=== PATIENT | male | born 1985 | race Caucasian/White ===

== ENCOUNTER 2016-03-15 13:56 | Emergency (ER) | payer BC ==
[2016-03-15 14:23] VITALS: BP 134/77
--- NOTE | 2016-03-15 14:50 | UC ---
Respiratory Complaint HPI - HPI Summary HPI Summary: patient with a CC of left sided chest tightness and pain after coughing fits x 3 days. he states he felt slightly congested the day before the cough started, but now denies congestion, rhinorrhea, CHANEY, cough with sputum production. chest pain does not radiate to the arm and is only present while coughing. he think he may have pulled a muscle. he has never had anything like this before. denies sick contacts. - History of Current Complaint Chief Complaint: UCRespiratory Stated Complaint: COUGH Time Seen by Provider: 03/15/16 14:26 Hx Obtained From: Patient Onset/Duration: Gradual Onset Timing: Constant Severity Initially: Moderate Severity Currently: Moderate Pain Intensity: 3 Pain Scale Used: 0-10 Numeric Character: Cough: Nonproductive Aggravating Factors: Allergens, Nothing - smoking Associated Signs And Symptoms: Positive: Negative - Risk Factors Pulmonary Embolism Risk Factors: Smoking Cardiac Risk Factors: Smoking Tuberculosis Risk Factors: Smoking - Allergies/Home Medications Allergies/Adverse Reactions: Allergies Allergy/AdvReac Type Severity Reaction Status Date / Time No Known Allergies Allergy Verified 03/15/16 14:22 PMH/Surg Hx/FS Hx/Imm Hx Endocrine History Of: Denies: Diabetes, Thyroid Disease Cardiovascular History Of: Denies: Cardiac Disorders, Hypertension Respiratory History Of: Denies: COPD, Asthma GI/ History Of: Denies: Ulcer - Surgical History Surgical History: None - Family History Known Family History: Positive: None, Cardiac Disease, Diabetes Negative: Respiratory Disease - Social History Occupation: Employed Full-time Lives: With Family Alcohol Use: Daily Alcohol Amount: 1 beer per day Substance Use Type: Marijuana Substance Use Comment - Amount & Last Used: occassionally Smoking Status (MU): Heavy Every Day Tobacco Smoker Type: Cigarettes Amount Used/How Often: <1ppd Length of Time of Smoking/Using Tobacco: 11 years Review of Systems Constitutional: Negative Skin: Negative Eyes: Negative Respiratory: Shortness Of Breath, Cough Cardiovascular: Negative, Chest Pain - feeling of tightness after coughing Motor: Negative Neurovascular: Negative Neurological: Negative All Other Systems Reviewed And Are Negative: Yes Physical Exam Triage Information Reviewed: Yes Appearance: Well-Appearing, No Pain Distress, Well-Nourished Vital Signs: Initial Vital Signs Temp 98.9 F 03/15/16 14:15 Pulse 81 03/15/16 14:15 Resp 20 03/15/16 14:15 BP 134/77 03/15/16 14:15 Pulse Ox 97 03/15/16 14:15 Vital Signs Reviewed: Yes Eye Exam: Normal Eyes: Positive: Conjunctiva Clear ENT Exam: Normal ENT: Positive: TMs normal Neck exam: Normal Neck: Positive: Supple, Nontender Respiratory Exam: Normal Respiratory: Positive: Chest non-tender, Lungs clear, Normal breath sounds, No respiratory distress, No accessory muscle use Cardiovascular Exam: Normal Musculoskeletal Exam: Normal Musculoskeletal: Positive: Strength Intact Neurological Exam: Normal Neurological: Positive: Alert Skin Exam: Normal Diagnostic Evaluation - Laboratory O2 Sat by Pulse Oximetry: 97 Respiratory Course/Dx - Course Course Of Treatment: patient educated about antibiotics. tenderness over the pectoral muscle on the L side. dry cough noted on exam. lungs clear. low suspician for cardiac in nature. smoker. will treat with muscle relaxer and cough medication with return precautions. - Differential Dx/Diagnosis Differential Diagnosis/HQI/PQRI: Asthma, Bronchitis, Lower Resp Infection Provider Diagnoses: cough with muscle strain - Physician Notification/Consults Instructed by Provider To: Have Pt Call For Appt. Discharge - Discharge Plan Condition: Stable Disposition: HOME Prescriptions: Cyclobenzaprine TAB* [Flexeril TAB*] 10 mg PO BID PRN #10 tab MDD 2 PRN Reason: Pain guaiFENesin/CODIEN 100MG-10MG* [Robitussin AC 100Mg-10Mg*] 5 ml PO Q4H PRN #150 ml MDD 6 teaspoons PRN Reason: Cough Patient Education Materials: Codeine (By mouth), Cyclobenzaprine (By mouth) Referrals: No Primary Care Phys,NOPCP [Primary Care Provider] - Additional Instructions: Drink plenty of fluids. take medications as prescribed to you do not drive with these medications if symptoms fail to improve or worsen, come back to the
== END 2016-03-15 14:46 | disposition home or self-care (01) ==
LOC: UCEAST 13:56
DX: R05 Cough (principal); T14.8 Other injury of unspecified body region; F17.210 Nicotine dependence, cigarettes, uncomplicated; X58.XXXA Exposure to other specified factors, initial encounter; Y92.9 Unspecified place or not applicable
CPT/HCPCS: 99212; G0463

== ENCOUNTER 2016-04-14 15:35 | Emergency (ER) | payer BC ==
[2016-04-14 17:44] VITALS: BP 158/106
--- NOTE | 2016-04-14 19:35 | UC ---
Respiratory Complaint HPI - HPI Summary HPI Summary: 30 male presents today complaining of muscular chest pain that began for the past month when he also was suffering from a URI. Patient states he was seen in [facility] [address] approximately one month ago (03/13/16) and diagnosed with muscle strain due to a cough and an URI. He was given a muscle relaxer and cough suppressant and told to return if he has not had any relief. He states he had minimal relief and still complains of an ache under his clavicle that is worse when coughing and upon movement of his upper left extremity. Patient states the pain is worse upon waking up in the morning along with his cough. Describes it to be "like a ball stuck right under his clavicle" throbbing, achey and constant. States his URI has improved but is feeling like he is coming down with a cold. He has been under a lot of stress lately with a recent friend . He has been unable to sleep comfortably at night not knowing what this pain is from. Patient is a smoker and worries it may have something to do with his lungs. Admits to chronic dry cough. Denies difficulty breathing, radiating chest pain to his back or arm, abdominal pain and numbness/tingling. 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 Has tried Ibuprofen with some relief. No cardiac history. no pertinent family history. Does not appear to be cardiac. - History of Current Complaint Chief Complaint: UCRespiratory Stated Complaint: URI Time Seen by Provider: 04/14/16 19:03 Hx Obtained From: Patient Onset/Duration: Lasting Weeks, Still Present Severity Initially: Mild Severity Currently: Mild Pain Intensity: 2 Pain Scale Used: 0-10 Numeric Character: Cough: Nonproductive - chronic Aggravating Factors: Deep Breaths - worse with any movement, coughing Alleviating Factors: OTC Meds Associated Signs And Symptoms: Positive: Negative - Allergies/Home Medications Allergies/Adverse Reactions: Allergies Allergy/AdvReac Type Severity Reaction Status Date / Time No Known Allergies Allergy Verified 04/14/16 17:43 PMH/Surg Hx/FS Hx/Imm Hx Previously Healthy: Yes Endocrine History Of: Denies: Diabetes, Thyroid Disease Cardiovascular History Of: Denies: Cardiac Disorders, Hypertension Respiratory History Of: Denies: COPD, Asthma GI/ History Of: Denies: Ulcer - Surgical History Surgical History: None - Family History Known Family History: Positive: None, Cardiac Disease - grandfather, Diabetes Negative: Respiratory Disease - Social History Alcohol Use: Occasionally Alcohol Amount: 1 beer per day Substance Use Type: Marijuana Substance Use Comment - Amount & Last Used: occassionally Smoking Status (MU): Current Every Day Smoker Type: Cigarettes Amount Used/How Often: 3/4 PPD Length of Time of Smoking/Using Tobacco: 11 years Review of Systems Constitutional: Negative Skin: Negative Eyes: Negative ENT: Negative Respiratory: Cough - dry Cardiovascular: Negative, Chest Pain - pain in between ribs, under clavicle, left side Gastrointestinal: Negative Genitourinary: Negative Motor: Negative Neurovascular: Negative Musculoskeletal: Myalgia - right upper rib cage Neurological: Negative Psychological: Anxious - stressed All Other Systems Reviewed And Are Negative: Yes Physical Exam Triage Information Reviewed: Yes Appearance: Well-Appearing, No Pain Distress, Well-Nourished Vital Signs: Initial Vital Signs Temp 98.6 F 04/14/16 17:39 Pulse 90 04/14/16 17:39 Resp 16 04/14/16 17:39 BP 158/106 04/14/16 17:39 Pulse Ox 100 04/14/16 17:39 BP elevated, patient is anxious. Vital Signs Reviewed: Yes Eyes: Positive: Conjunctiva Clear ENT: Positive: Normal ENT inspection, Hearing grossly normal Neck: Positive: Supple, Nontender Respiratory: Positive: Chest non-tender, Lungs clear, Normal breath sounds, No respiratory distress Cardiovascular: Positive: RRR, No Murmur, Pulses Normal, Brisk Capillary Refill Abdomen Description: Positive: Nontender, No Organomegaly, Soft Bowel Sounds: Positive: Present Musculoskeletal: Positive: Strength Intact, ROM Intact, No Edema - no deformity , crepitus, step-off or eccymosis noted. skin intact. discrete tenderness on palpation of left upper chest, in between ribs, just under left clavicle. reproducible. Neurological Exam: Normal Psychological Exam: Normal Skin Exam: Normal UC Diagnostic Evaluation - Laboratory O2 Sat by Pulse Oximetry: 100 - Radiology Xray Interpretation: No Acute Changes - NO EVIDENCE FOR ACTIVE CARDIOPULMONARY DISEASE Radiology Interpretation Completed By: Radiologist Respiratory Course/Dx - Course Course Of Treatment: X-ray of chest was obtained to rule out cardiopulmonary disease since symptoms have been going on for a month and to ease patient's mind of serious pathologies. Ibuprofen was given to help with costochondritis and cough suppresent to help decrease tension. - Differential Dx/Diagnosis Differential Diagnosis/HQI/PQRI: Bronchitis, Sinusitis, Other Provider Diagnoses: costochondritis/Tietze syndrome Discharge - Discharge Plan Condition: Stable Disposition: HOME Prescriptions: Ibuprofen TAB* [Motrin TAB* 600 MG] 600 mg PO Q8H PRN #20 tab PRN Reason: Pain guaiFENesin/CODIEN 100MG-10MG* [Robitussin AC 100Mg-10Mg*] 5 ml PO Q4H PRN #150 ml MDD 6 teaspoons PRN Reason: Cough Patient Education Materials: Costochondritis (ED) Referrals: No Primary Care Phys,NOPCP [Primary Care Provider] - [facility] [Outside] Additional Instructions: Take prescribed Ibuprofen for the next 5-7 days or until symptoms resolve. Take cough suppressant as while to help you sleep and in order to rest the area of pain. Rest your muscles in your arm and chest. Ice/heat alternations may help. Avoid physical activity and heavy lifting until symptoms resolve. If symptoms worsen or do not improve please return to . Follow-up with your primary care physician is recommended.
--- NOTE | 2016-04-14 19:43 | RAD ---
INDICATION: Cough and chest pain. COMPARISON: There are no prior studies available for comparison. TECHNIQUE: Dual-energy PA and lateral views of the chest were obtained. FINDINGS: The heart is within normal limits in size. Mediastinal and hilar contours appear within normal limits. The lungs are clear. No pleural effusion is present. IMPRESSION: NO EVIDENCE FOR ACTIVE CARDIOPULMONARY DISEASE.
== END 2016-04-14 20:48 | disposition home or self-care (01) ==
LOC: UCEAST 15:35
DX: M94.0 Chondrocostal junction syndrome [Tietze] (principal); F12.90 Cannabis use, unspecified, uncomplicated; F17.210 Nicotine dependence, cigarettes, uncomplicated
CPT/HCPCS: 71020; 99212; G0463

== ENCOUNTER 2018-05-24 13:00 | Emergency (ER) | payer SELFPAY ==
[2018-05-24 13:18] VITALS: BP 132/66
--- NOTE | 2018-05-24 13:31 | UC ---
UC Dental HPI - HPI Summary HPI Summary: 32-year-old male comes in with a chief complaint of dental pain. His been going on for several days. It's getting worse since in the right lower posterior jaw. He feels some swelling. Pain is worse with chewing. No difficulty swallowing no shortness of breath. No ear pain. No fevers or chills. He's tried ibuprofen which does help decrease the pain. He tried to get an appointment with her dentist today but could not get in. - History of Current Complaint Chief Complaint: UCDentalProblem Stated Complaint: DENTAL Time Seen by Provider: 05/24/18 13:24 Pain Intensity: 2 - Allergies/Home Medications Allergies/Adverse Reactions: Allergies Allergy/AdvReac Type Severity Reaction Status Date / Time No Known Allergies Allergy Verified 05/24/18 13:18 Home Medications: Home Medications Ibuprofen TAB* [Motrin TAB* 600 MG] 800 mg PO Q8H PRN 05/24/18 [History Confirmed 05/24/18] PMH/Surg Hx/FS Hx/Imm Hx Previously Healthy: Yes - Surgical History Surgical History: None - Family History Known Family History: Positive: None, Cardiac Disease - grandfather, Diabetes Negative: Respiratory Disease - Social History Alcohol Use: Weekly Alcohol Amount: 1 beer per day Substance Use Type: Marijuana Substance Use Comment - Amount & Last Used: occassionally Smoking Status (MU): Current Every Day Smoker Type: Cigarettes Amount Used/How Often: 1 PPD Length of Time of Smoking/Using Tobacco: 11 years Household Exposure Type: Cigarettes Review of Systems All Other Systems Reviewed And Are Negative: Yes Constitutional: Positive: Negative Skin: Positive: Negative Eyes: Positive: Negative ENT: Positive: Dental Pain Respiratory: Positive: Negative Cardiovascular: Positive: Negative Gastrointestinal: Positive: Negative Motor: Positive: Negative Neurovascular: Positive: Negative Musculoskeletal: Positive: Negative Neurological: Positive: Negative Psychological: Positive: Negative Is Patient Immunocompromised?: No Physical Exam Triage Information Reviewed: Yes Appearance: Well-Appearing, No Pain Distress, Well-Nourished Vital Signs: Initial Vital Signs Temp 98.2 F 05/24/18 13:13 Pulse 55 05/24/18 13:13 Resp 18 05/24/18 13:13 BP 132/66 05/24/18 13:13 Pulse Ox 98 05/24/18 13:13 Vital Signs Reviewed: Yes Eye Exam: Normal Eyes: Positive: Conjunctiva Clear ENT: Positive: Pharynx normal, TMs normal Dental: Positive: Gross Decay/Caries @ - RT LOWER POSTERIOR Neck exam: Normal Neck: Positive: Supple Respiratory: Positive: Lungs clear, Normal breath sounds, No respiratory distress Cardiovascular: Positive: RRR Musculoskeletal Exam: Normal Musculoskeletal: Positive: Strength Intact, ROM Intact Neurological Exam: Normal Neurological: Positive: Alert, Muscle Tone Normal Psychological Exam: Normal Psychological: Positive: Age Appropriate Behavior Skin Exam: Normal Dental Complaint Course/Dx - Differential Dx/Diagnosis Provider Diagnosis: Dental infection, Pain, dental Discharge - Sign-Out/Discharge Documenting (check all that apply): Patient Departure All imaging exams completed and their final reports reviewed: No Studies - Discharge Plan Condition: Stable Disposition: HOME Prescriptions: Amoxicillin PO (*) [Amoxicillin 500 MG CAP*] 500 mg PO TID #30 cap Ibuprofen TAB* [Motrin TAB* 600 MG] 600 mg PO Q6H PRN #30 tab PRN Reason: Pain Patient Education Materials: Toothache (ED) Referrals: [facility] [place] [facility] [Outside] Additional Instructions: FOLLOW UP WITH YOUR DENTIST. GET RECHECKED FOR ANY WORSENING OF YOUR CONDITION OR QUESTIONS OR CONCERNS. - Billing Disposition and Condition Condition: STABLE Disposition: Home
== END 2018-05-24 13:38 | disposition home or self-care (01) ==
LOC: UCEAST 13:00
DX: K08.89 Other specified disorders of teeth and supporting structures (principal); K04.7 Periapical abscess without sinus; F17.210 Nicotine dependence, cigarettes, uncomplicated
CPT/HCPCS: 99212; G0463